=== PATIENT | female | born 1965 | race Caucasian/White ===

== ENCOUNTER 2023-12-03 06:53 | Emergency (ER) | payer BC ==
[~2023-12-03] VITALS: Ht 157.5 cm; Wt 64.5 kg
[2023-12-03] MEDS ORDERED: OMEPRAZOLE10 MG (07:03)
[2023-12-03] MEDS ORDERED: COLESTID1 GM (07:03)
[2023-12-03] MEDS ORDERED: LIPITOR20 MG (07:04)
[2023-12-03] MEDS ORDERED: MULTI COMPLETE1 EACH (07:04)
[2023-12-03] MEDS ORDERED: GLIPIZIDE XL2.5 MG (07:04)
[2023-12-03] MEDS ORDERED: ANASTROZOLE1 MG (07:04)
[2023-12-03] MEDS ORDERED: TYLENOL325 MG (07:05)
[2023-12-03] MEDS ORDERED: CALCIUM CITRAT1 EA10 (07:05)
[2023-12-03] MEDS ORDERED: IRON236 MG (07:05)
[2023-12-03] MEDS ORDERED: HYDROmorphone HCL 1 MG/ML SYR IV PRN (07:30)
[2023-12-03] MEDS ORDERED: ondansetron HCL 4 MG/2 ML VIAL IV ONE (07:45)
[2023-12-03] MEDS ORDERED: LIDOCAINE HCL 4% 1 EACH PATCH TD ONE (07:45)
[2023-12-03] MEDS ORDERED: fentaNYL citrate 100 MCG/2 ML VIAL IV PRN (08:30)
[2023-12-03] MEDS ORDERED: OXYCODONE HCL5 MG PO (11:11)
[2023-12-03] MEDS ORDERED: OXYCODONE/APAP 10/325 TAB PO ONE (11:30)
[2023-12-03 11:39] VITALS: BP 10/77
[2023-12-03] MEDS ORDERED: LIDOCAINE PATCH REMOVAL 1 EA TD SCH (21:00)
== END 2023-12-03 11:40 | disposition home or self-care (01) ==
LOC: ED 06:53
DX: M54.50 Low back pain, unspecified (principal); E11.9 Type 2 diabetes mellitus without complications; Z88.8 Allergy status to other drugs, medicaments and biological substances; Z79.899 Other long term (current) drug therapy
CPT/HCPCS: 96374; 96375; 99283-25; A9270; J1170; J2405; J3010